=== PATIENT | female | born 1980 | race Caucasian/White ===

== ENCOUNTER 2018-03-28 10:12 | Emergency (ER) | payer SELFPAY ==
[2018-03-28 10:19] VITALS: BP 115/77; PULSE 79; TEMP 98.7; BMI 36.0
--- NOTE | 2018-03-28 11:28 | PDOC ---
History of Present Illness - General Chief Complaint: Eye Problem Stated Complaint: EYE/THROAT/PROBLEM Time Seen by Provider: 03/28/18 10:30 History Source: Patient Exam Limitations: Clinical Condition - History of Present Illness Initial Comments: 03/28/18 11:23 Patient with no significant past medical history presenting with complaint of sore throat for one week and left eye pain and discharge for 2 days and patient reported yellow to green discharge in left eye with eye glue shot upon wake. Patient also reports intermittent nonproductive cough for same. Denies fever, chills, body aches. Denies corrective or contact lens use. Denies trauma to left eye. Timing/Duration: 1 week Past History - Past Medical History Allergies/Adverse Reactions: Allergies Allergy/AdvReac Type Severity Reaction Status Date / Time iodine Allergy Verified 03/28/18 10:17 Home Medications: Ambulatory Orders Azithromycin [Zithromax Tri-[place] (3 DAYS) -] 500 mg PO DAILY #3 tablet 03/28/18 Ipratropium [place] 2 sprays NS BID PRN #1 spray 03/28/18 Ofloxacin 0.3% Ophth Soln [Ocuflox -] 2 drop OP Q4H 5 Days #1 bottle 03/28/18 - Suicide/Smoking/Psychosocial Hx Smoking History: Never smoked Drug/Substance Use Hx: Yes (MARIJUANA) Review of Systems - Review of Systems Is the patient limited Armenian proficient: Yes Constitutional: No: Chills, Diaphoresis, Fever, Loss of Appetite, Malaise, Night Sweats, Weakness, Weight Stable, Unintentional Wgt. Loss, Unexplained wgt Loss, Other HEENTM: Yes: See HPI, Eye Pain (left eye), Throat Pain (for 1 week). No: Blurred Vision, Tearing, Recent change in vision, Double Vision, Cataracts, Ear Pain, Ocular Prothesis, Ear Discharge, Nose Pain, Nose Congestion, Tinnitus, Nose Bleeding, Hearing Loss, Throat Swelling, Mouth Pain, Dental Problems, Difficulty Swallowing, Mouth Swelling, Other Respiratory: Yes: See HPI, Cough (non-producitvive). No: Orthopnea, Shortness of Breath, SOB with Exertion, SOB at Rest, Stridor, Wheezing, Productive cough, Hemoptysis, Other Cardiac (ROS): No: Chest Pain, Edema, Irregular Heart Rate, Lightheadedness, Palpitations, Syncope, Chest Tightness, Other ABD/GI: No: Abdominal Distended, Abd. Pain w/ defecation, Blood Streaked Bowels , Constipated, Diarrhea, Difficulty Swallowing, Nausea, Poor Appetite, Poor Fluid Intake, Rectal Bleeding, Vomiting, Indigestion, Abdominal cramping, Tarry Stools, Other Musculoskeletal: No: Back Pain, Gout, Joint Pain, Joint Swelling, Muscle Pain, Muscle Weakness, Neck Pain, Joint Stiffness, Other All Other Systems: Reviewed and Negative *Physical Exam - Vital Signs Last Vital Signs Temp Pulse Resp BP Pulse Ox 98.7 F 79 16 115/77 99 03/28/18 10:17 03/28/18 10:17 03/28/18 10:17 03/28/18 10:17 03/28/18 10:17 - Physical Exam Comments: 03/28/18 11:26 GENERAL: Well developed, well nourished. Awake and alert. No acute distress. HEENT: Erythema to left conjunctiva. Right conjunctiva clear. Bilateral eyelids normal Normocephalic, atraumatic. PERRLA, EOMI. non-icteric. Moist mucous membranes. Oropharynx is clear. NECK: Supple. Full ROM. No JVD. Carotid pulses 2+ and symmetric, without bruits. No thyromegaly. No lymphadenopathy. CARDIOVASCULAR: Regular rate and rhythm. No murmurs, rubs, or gallops. Distal pulses are 2+ and symmetric. PULMONARY: No evidence of respiratory distress. Lungs clear to auscultation bilaterally. No wheezing, rales or rhonchi. ABDOMINAL: Soft. Non-tender. Non-distended. No rebound or guarding. No organomegaly. Normoactive bowel sounds. MUSCULOSKELETAL Normal range of motion at all joints. No bony deformities or tenderness. No CVA tenderness. EXTREMITIES: No cyanosis. No clubbing. No edema. No calf tenderness. SKIN: Warm and dry. Normal capillary refill. No rashes. No jaundice. NEUROLOGICAL: Alert, awake, appropriate. Cranial nerves 2-12 intact. No deficits to light touch and temperature in face, upper extremities and lower extremities. No motor deficits in the in face, upper extremities and lower extremities. Normoreflexic in the upper and lower extremities. Normal speech. Toes are down- going bilaterally. Gait is normal without ataxia. PSYCHIATRIC: Cooperative. Good eye contact. Appropriate mood and affect. General Appearance: Yes: Nourished, Appropriately Dressed. No: Apparent Distress Medical Decision Making - Medical Decision Making 03/28/18 11:28 Patient presented with symptoms of left conjunctivitis and sore throat. Rapid strep throat culture order to rule out strep pharyngitis. treat basal lab results 03/28/18 12:02 rapid strep neg. treat for sinusitis with ophthalmology follow-up *DC/Admit/Observation/Transfer Diagnosis at time of Disposition: URI (upper respiratory infection) Qualifiers: URI type: unspecified URI Qualified Code(s): J06.9 - Acute upper respiratory infection, unspecified Conjunctivitis Qualifiers: Conjunctivitis type: acute - Discharge Dispostion Disposition: HOME Condition at time of disposition: Good Decision to Admit order: No - Prescriptions Prescriptions: Azithromycin [Zithromax Tri-[place] (3 DAYS) -] 500 mg PO DAILY #3 tablet Ipratropium [place] 2 sprays NS BID PRN #1 spray PRN Reason: nasal congestion Ofloxacin 0.3% Ophth Soln [Ocuflox -] 2 drop OP Q4H 5 Days #1 bottle - Referrals Referrals: Sergio Lawson [Non Staff, Medical] - - Patient Instructions Additional Instructions: take medication as prescribed. follow-up with ophthalmology if eye symptoms persists for more than 3 days - Post Discharge Activity Forms/Work/School Notes: Back to Work
== END 2018-03-28 12:20 | disposition home or self-care (01) ==
LOC: JERFT 10:12
DX: J06.9 Acute upper respiratory infection, unspecified (principal); H10.32 Unspecified acute conjunctivitis, left eye
CPT/HCPCS: 87070; 87430; 99281-25